=== PATIENT | male | born 1990 | race Caucasian/White ===

== ENCOUNTER → 2024-04-16 | Outpatient (CLI) | payer BC ==
--- NOTE | 2024-04-16 11:28 | XR ---
EXAMINATION TYPE: XR femur RT DATE OF EXAM: 04/16/2024 11:14 AM COMPARISON: 04/16/2014 CLINICAL INDICATION: Male, 33 years old with history of M79.604 PAIN IN RIGHT LEG; [facility], pain TECHNIQUE: XR femur RT examined in Frontal and lateral projections. FINDINGS: Cam deformity to the right femoral head. No evidence of acute osseous pathology, joint dis location, or soft tissue swelling. Mild osteophyte formations of the superior acetabulum. Mild joint space narrowing. IMPRESSION: 1. No acute osseous pathology. 2. 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 [facility], , 04/16/2024 11:25 AM
--- NOTE | 2024-04-16 11:28 | XR ---
EXAMINATION TYPE: XR pelvis AP view DATE OF EXAM: 04/16/2024 11:14 AM COMPARISON: Same day CLINICAL INDICATION: Male, 33 years old with history of M79.604 PAIN IN RIGHT LEG; [facility] TECHNIQUE: XR pelvis AP view, examined in a single projection. FINDINGS: Cam deformity to the right femoral head with degeneration changes of the right acetabulum.T here is no evidence of fracture or dislocation. There is no soft tissue abnormality. No abnormal demetris cifications are present. The spine appears intact. The hips appear intact. No significant degeneratio n. IMPRESSION: 1. No acute osseous pathology. 2. 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 [facility], , 04/16/2024 11:26 AM
--- NOTE | 2024-04-16 11:29 | XR ---
EXAMINATION TYPE: XR lumbosacral spine min 4V DATE OF EXAM: 04/16/2024 11:14 AM COMPARISON: None CLINICAL INDICATION: Male, 33 years old with history of M54.9; TECHNIQUE: XR lumbosacral spine min 4V - Frontal, lateral , bilateral oblique and coned in L5-S1 late ral views of the spine. FINDINGS: No evidence of any acute osseous pathology. No evidence of loss of vertebral body height i s seen. There is normal alignment of the lumbar vertebral bodies. Minimal degeneration changes with f acet joint arthropathy and osteophyte formation. IMPRESSION: 1. No acute fracture. 2. Minimal disc degeneration. [facility], , 04/16/2024 11:27 AM
--- NOTE | 2024-04-16 11:30 | XR ---
EXAMINATION TYPE: XR sacroiliac joint comp BILAT DATE OF EXAM: 04/16/2024 11:14 AM COMPARISON: 04/16/2024 CLINICAL INDICATION: Male, 33 years old with history of M54.9 DORSALGIA; TECHNIQUE: The sacroiliac joints were examined in a frontal projections. FINDINGS: There is no evidence of fracture or dislocation. There is no soft tissue abnormality. No a bnormal calcifications are present. Multilevel degenerative changes of the lower spine. IMPRESSION: No acute osseous pathology. No significant sacroiliac degeneration. [facility], , 04/16/2024 11:28 AM
== END | disposition home or self-care (01) ==
LOC: RADXRMAIN 10:22
PROVIDERS: ATTEND Pediatrics
DX: M51.360 Other intervertebral disc degeneration, lumbar region with discogenic back pain only (principal); M53.3 Sacrococcygeal disorders, not elsewhere classified; M79.604 Pain in right leg
CPT/HCPCS: 72110; 72170; 72202